=== PATIENT | female | born 1940 | race Native Hawaiian/Other Pacific Islander ===

== ENCOUNTER 2017-03-24 10:27 | Outpatient (CLI) | payer OTHER ==
[~2017-03-24 10:27] MED LIST: CARTIA XT240 MG/24 PO; KLOR-CON M2020 MEQ PO; LEVO0.0529 PO; LEXAPRO20 MG PO; METO50TA27 PO; MONT10TA PO; NAMENDA XR28 MG PO; OMEPRAZOLE20 M1 PO; PREDNISONE10 M1 PO; PRIMIDONE250 MG PO; REMERON SLTB45 MG PO; RISP1TAB PO; SIMV10TA PO; TEMA30CA18 PO; TRAZ100T PO; VIIBRYD40 MG PO; WELLBUTRIN150 MG PO; XANAX XR1 MG PO; XARELTO20 MG PO
[2017-03-24 10:58] LABS: PLATELET COUNT 357 K/uL (152-353)
[2017-03-24 11:28] LABS: POTASSIUM 3.2 mmol/L (3.6-5.2); SODIUM 137 mmol/L (136-145)
== END 2017-03-24 11:30 | disposition home or self-care (01) ==
LOC: LABW 10:27
PROVIDERS: Family Medicine
DX: J44.9 Chronic obstructive pulmonary disease, unspecified (principal); I48.91 Unspecified atrial fibrillation; I50.9 Heart failure, unspecified; J45.901 Unspecified asthma with (acute) exacerbation; J30.2 Other seasonal allergic rhinitis; R06.02 Shortness of breath; F51.01 Primary insomnia; E55.9 Vitamin D deficiency, unspecified
CPT/HCPCS: 36415; 80053; 80061; 81000; 82306; 82550; 82553; 83735; 84439; 84443; 84484; 84550; 85027; 93005

== ENCOUNTER 2017-04-18 14:34 | Emergency (ER) | payer OTHER ==
[~2017-04-18] VITALS: Ht 160 cm; Wt 81.6 kg
[2017-04-18 16:34] VITALS: BP 148/80; TEMP 99.1
== END 2017-04-18 16:35 | disposition home or self-care (01) ==
LOC: ED 14:34
DX: S82.844A Nondisplaced bimalleolar fracture of right lower leg, initial encounter for closed fracture (principal); W18.39XA Other fall on same level, initial encounter; Y92.098 Other place in other non-institutional residence as the place of occurrence of the external cause
CPT/HCPCS: 96372; 99283; J1170; J2405; L4350

== ENCOUNTER 2017-05-14 11:02 | Outpatient (CLI) | payer OTHER ==
[2017-05-14 12:24] LABS: POTASSIUM 3.9 mmol/L (3.6-5.2)
== END 2017-05-14 19:07 | disposition home or self-care (01) ==
LOC: LABW 11:02
PROVIDERS: Specialist
DX: R55 Syncope and collapse (principal)
CPT/HCPCS: 36415; 80053; 82533; 85651; 86039

== ENCOUNTER 2017-08-18 14:29 | Inpatient (IN) | payer OTHER ==
[~2017-08-18] VITALS: Ht 160 cm; Wt 85.0 kg
[2017-08-18] VITALS (19 sets, daily range): BP systolic 107–189; BP diastolic 64–112; TEMP 97.8–98.1
[2017-08-18 15:48] LABS: PLATELET COUNT 302 K/uL (152-353)
[2017-08-18 15:56] LABS: POTASSIUM 3.3 mmol/L (3.6-5.2)
[2017-08-18] MEDS ORDERED: ALPR0.5T24 PO (16:40)
[2017-08-18] MEDS ORDERED: SM OMEPRAZOLE20 MG PO (16:45)
[2017-08-18] MEDS ORDERED: PACERONE200 MG OR (16:49)
[2017-08-18] MEDS ORDERED: BUMETANIDE2 MG PO (16:52)
[2017-08-18] MEDS ORDERED: DILTIAZEM HCL180 M2 PO (16:53)
[2017-08-18] MEDS ORDERED: TRAZ100T OR (16:54)
[2017-08-19] VITALS (21 sets, daily range): BP systolic 92–135; BP diastolic 45–100; TEMP 98.9–101
[2017-08-19 08:19] LABS: PLATELET COUNT 268 K/uL (152-353)
[2017-08-19 08:36] LABS: POTASSIUM 3.3 mmol/L (3.6-5.2)
[2017-08-19] MEDS ORDERED: HYDR5TAB9 PO (09:52)
[2017-08-19] MEDS ORDERED: TRAZ100T PO (09:58)
[2017-08-19 16:29] LABS: PARTIAL THROMBOPLASTIN TIME 18.9 SECONDS (24.5-33.6)
[2017-08-19 18:56] LABS: POTASSIUM 4.1 mmol/L (3.6-5.2)
[2017-08-20] VITALS (24 sets, daily range): BP systolic 78–150; BP diastolic 47–93; TEMP 98.3–102.8
[2017-08-20 06:15] LABS: PLATELET COUNT 233 K/uL (152-353)
[2017-08-20 06:46] LABS: POTASSIUM 4.4 mmol/L (3.6-5.2)
[2017-08-21] VITALS (24 sets, daily range): BP systolic 89–128; BP diastolic 57–80; TEMP 97.4–99.9
[2017-08-21 07:56] LABS: PLATELET COUNT 216 K/uL (152-353)
[2017-08-21 08:34] LABS: POTASSIUM 4.6 mmol/L (3.6-5.2)
[2017-08-22] VITALS (24 sets, daily range): BP systolic 72–128; BP diastolic 48–95; TEMP 97.4–98.1
[2017-08-22 06:06] LABS: POTASSIUM 4.4 mmol/L (3.6-5.2)
[2017-08-22 06:32] LABS: PLATELET COUNT 266 K/uL (152-353)
[2017-08-23] VITALS (21 sets, daily range): BP systolic 85–148; BP diastolic 49–99; TEMP 97.6–98.8
[2017-08-23 06:02] LABS: POTASSIUM 4.5 mmol/L (3.6-5.2)
[2017-08-23 06:06] LABS: PLATELET COUNT 313 K/uL (152-353)
[2017-08-24] VITALS (18 sets, daily range): BP systolic 98–137; BP diastolic 67–114; TEMP 98
[2017-08-24 06:33] LABS: PLATELET COUNT 334 K/uL (152-353)
[2017-08-24 06:36] LABS: POTASSIUM 4.6 mmol/L (3.6-5.2)
[2017-08-25] VITALS (26 sets, daily range): BP systolic 83–142; BP diastolic 52–80; TEMP 97.7–99
[2017-08-25 06:06] LABS: PLATELET COUNT 338 K/uL (152-353)
[2017-08-25 06:18] LABS: POTASSIUM 4.8 mmol/L (3.6-5.2)
[2017-08-26] VITALS (23 sets, daily range): BP systolic 89–149; BP diastolic 43–85; TEMP 97.7–98.9
[2017-08-26 06:34] LABS: PLATELET COUNT 342 K/uL (152-353)
[2017-08-26 07:01] LABS: POTASSIUM 4.6 mmol/L (3.6-5.2)
[2017-08-27] VITALS (24 sets, daily range): BP systolic 118–147; BP diastolic 6–98; TEMP 97.9–98.3
[2017-08-27 06:14] LABS: PLATELET COUNT 352 K/uL (152-353)
[2017-08-27 06:26] LABS: POTASSIUM 4.7 mmol/L (3.6-5.2)
[2017-08-28] VITALS (15 sets, daily range): BP systolic 95–141; BP diastolic 57–75; TEMP 97.5–98.7
[2017-08-28 03:19] LABS: PLATELET COUNT 374 K/uL (152-353)
[2017-08-28 04:43] LABS: POTASSIUM 4.6 mmol/L (3.6-5.2)
[2017-08-29] VITALS: BP 118/59; TEMP 97.4
[2017-08-29 04:00] VITALS: BP 130/71; TEMP 98.5
[2017-08-29 06:29] LABS: PLATELET COUNT 370 K/uL (152-353)
[2017-08-29 06:55] LABS: POTASSIUM 4.5 mmol/L (3.6-5.2)
[2017-08-29 08:00] VITALS: BP 128/59; TEMP 97.8
[2017-08-29 12:00] VITALS: BP 124/63; TEMP 98.1
[2017-08-29 16:00] VITALS: BP 110/55; TEMP 98.2
[2017-08-29 20:00] VITALS: BP 122/59; TEMP 98.2
[2017-08-30] VITALS: BP 128/56; TEMP 98.5
[2017-08-30 04:00] VITALS: BP 144/67; TEMP 97.8
[2017-08-30 06:35] LABS: PLATELET COUNT 418 K/uL (152-353)
[2017-08-30 08:00] VITALS: BP 145/73; TEMP 97.7
[2017-08-30 09:27] LABS: POTASSIUM 4.6 mmol/L (3.6-5.2)
[2017-08-30 12:00] VITALS: BP 111/60; TEMP 98.2
[2017-08-30 16:00] VITALS: BP 98/54; TEMP 97.8
[2017-08-30 20:00] VITALS: BP 106/49; TEMP 98.3
[2017-08-31] VITALS: BP 139/50; TEMP 98.4
[2017-08-31 04:00] VITALS: BP 153/67; TEMP 98.3
[2017-08-31 07:23] LABS: POTASSIUM 5.1 mmol/L (3.6-5.2)
[2017-08-31 08:00] VITALS: BP 148/72; TEMP 98
[2017-08-31 08:43] LABS: PLATELET COUNT 354 K/uL (152-353)
[2017-08-31 12:00] VITALS: BP 160/75; TEMP 98.3
[2017-08-31 16:00] VITALS: BP 146/73; TEMP 98
[2017-08-31 20:00] VITALS: BP 104/51; TEMP 98.7
[2017-09-01] VITALS: BP 126/62; TEMP 98.3
[2017-09-01 04:00] VITALS: BP 146/71; TEMP 97.5
[2017-09-01 06:22] LABS: PLATELET COUNT 337 K/uL (152-353)
[2017-09-01 06:45] LABS: POTASSIUM 5.1 mmol/L (3.6-5.2)
[2017-09-01 08:00] VITALS: BP 171/73; TEMP 98
[2017-09-01 12:00] VITALS: BP 169/75; TEMP 98
[2017-09-01 16:00] VITALS: BP 151/64; TEMP 98.3
[2017-09-01 20:00] VITALS: BP 154/67; TEMP 97.6
[2017-09-02] VITALS: BP 161/69; TEMP 98.3
[2017-09-02 04:00] VITALS: BP 125/63; TEMP 98
[2017-09-02 05:16] LABS: PLATELET COUNT 311 K/uL (152-353)
[2017-09-02 05:24] LABS: POTASSIUM 4.3 mmol/L (3.6-5.2); SODIUM 131 mmol/L (136-145)
[2017-09-02 08:00] VITALS: BP 154/63; TEMP 97.7
[2017-09-02 12:00] VITALS: BP 119/83; TEMP 98.2
== END 2017-09-02 14:30 | disposition home or self-care (01) | DRG 308 ==
LOC: ED 14:29 → ICU 15:15 → ED 15:15 → ICU 15:15 → MED/SURG 08-28 14:45
PROVIDERS: Emergency Medicine; Specialist; ADMIT Family Medicine
DX: I48.91 Unspecified atrial fibrillation (principal); J18.8 Other pneumonia, unspecified organism; E87.1 Hypo-osmolality and hyponatremia; J44.0 Chronic obstructive pulmonary disease with (acute) lower respiratory infection; D72.828 Other elevated white blood cell count; R07.89 Other chest pain; R30.0 Dysuria; E87.6 Hypokalemia; E83.51 Hypocalcemia; E83.42 Hypomagnesemia; N18.3 Chronic kidney disease, stage 3 (moderate); I10 Essential (primary) hypertension; S82.841A Displaced bimalleolar fracture of right lower leg, initial encounter for closed fracture
CPT/HCPCS: 36415; 36600; 51702; 80048; 80053; 80162; 80200; 81000; 82150; 82272; 82550; 82553; 82570; 82805; 82948; 82962; 83605; 83690; 83735; 83880; 84300; 84443; 84484; 84540; 85027; 85379; 85610; 85651; 85730; 87015; 87040; 87045; 87070; 87205; 87324; 87449; 87804; 87899; 93005; 93306; 94640; 94664; 94668; 94760; 96361; 96372; 96374; 96375; 96376; 99285; J0150; J0153; J1160; J1815; J1940; J1956; J2060; J2270; J2405; J2920; J2930; J3260; J3490

== ENCOUNTER 2017-09-12 18:40 | Inpatient (IN) | payer OTHER ==
[~2017-09-12] VITALS: Ht 160 cm; Wt 81.6 kg
[2017-09-12 18:35] VITALS: BP 105/68; TEMP 97.7
[~2017-09-12 18:40] MED LIST changes: +ALPR0.5T24 PO; +BUMETANIDE2 MG PO; +DILTIAZEM HCL180 M2 PO; +HYDR5TAB9 PO; +PACERONE200 MG OR; +SM OMEPRAZOLE20 MG PO; +TRAZ100T OR
[2017-09-12 19:52] LABS: POTASSIUM 2.5 mmol/L (3.6-5.2); SODIUM 131 mmol/L (136-145)
[2017-09-12 20:31] LABS: PLATELET COUNT 143 K/uL (152-353)
[2017-09-13] VITALS (19 sets, daily range): BP systolic 74–113; BP diastolic 37–75; TEMP 98.6–100.5; Ht 160 cm; Wt 81.6 kg
[2017-09-13 06:22] LABS: PLATELET COUNT 129 K/uL (152-353)
[2017-09-13 06:28] LABS: POTASSIUM 3.5 mmol/L (3.6-5.2)
[2017-09-14] VITALS (17 sets, daily range): BP systolic 89–150; BP diastolic 45–80; TEMP 98.3–100.8
[2017-09-14 08:19] LABS: PLATELET COUNT 154 K/uL (152-353)
[2017-09-14 08:28] LABS: POTASSIUM 3.3 mmol/L (3.6-5.2); SODIUM 133 mmol/L (136-145)
[2017-09-15] VITALS (15 sets, daily range): BP systolic 90–121; BP diastolic 52–102; TEMP 99.3
[2017-09-15 08:03] LABS: PLATELET COUNT 186 K/uL (152-353)
[2017-09-15 08:21] LABS: POTASSIUM 3.5 mmol/L (3.6-5.2); SODIUM 133 mmol/L (136-145)
== END 2017-09-15 15:38 | disposition short-term general hospital (02) | DRG 190 ==
LOC: ED 18:40 → MED/SURG 23:22 → ICU 23:22 → MED/SURG 23:22 → ICU 23:22 → MED/SURG 09-13 00:05 → ICU 09-15 15:38
PROVIDERS: Specialist; ADMIT Family Medicine
DX: J44.0 Chronic obstructive pulmonary disease with (acute) lower respiratory infection (principal); J18.8 Other pneumonia, unspecified organism; I48.91 Unspecified atrial fibrillation; S82.841A Displaced bimalleolar fracture of right lower leg, initial encounter for closed fracture; K59.09 Other constipation; N18.3 Chronic kidney disease, stage 3 (moderate); I12.9 Hypertensive chronic kidney disease with stage 1 through stage 4 chronic kidney disease, or unspecified chronic kidney disease; E11.22 Type 2 diabetes mellitus with diabetic chronic kidney disease
CPT/HCPCS: 36415; 36600; 80053; 81000; 82550; 82553; 82805; 82962; 83735; 83880; 84100; 84484; 85027; 87804; 93005; 94640; 94664; 94760; 99283; J1650; J1956; J2405; J2550; J3475; Q9963

== ENCOUNTER 2017-09-15 15:48 | Outpatient (CLI) | payer OTHER | END 2017-09-15 16:18 | disposition short-term general hospital (02) | LOC: AMB 15:48 | DX: J44.0 Chronic obstructive pulmonary disease with (acute) lower respiratory infection (principal); J18.8 Other pneumonia, unspecified organism; I48.91 Unspecified atrial fibrillation; S82.841A Displaced bimalleolar fracture of right lower leg, initial encounter for closed fracture; K59.09 Other constipation; N18.3 Chronic kidney disease, stage 3 (moderate); I12.9 Hypertensive chronic kidney disease with stage 1 through stage 4 chronic kidney disease, or unspecified chronic kidney disease; E11.22 Type 2 diabetes mellitus with diabetic chronic kidney disease | CPT/HCPCS: A0425; A0427 ==

== ENCOUNTER 2017-09-27 12:44 | Outpatient (CLI) | payer OTHER | END 2017-09-27 13:45 | disposition home or self-care (01) | LOC: RAD 12:44 | DX: M54.5 Low back pain (principal) ==

== ENCOUNTER 2017-10-04 11:23 | Outpatient (CLI) | payer OTHER ==
[2017-10-04 12:35] LABS: POTASSIUM 2.5 mmol/L (3.6-5.2)
== END 2017-10-04 19:05 | disposition home or self-care (01) ==
LOC: LABW 11:23
PROVIDERS: Internal Medicine Cardiovascular Disease
DX: Z79.899 Other long term (current) drug therapy (principal); Z51.81 Encounter for therapeutic drug level monitoring
CPT/HCPCS: 36415; 80048; 80162

== ENCOUNTER 2017-10-14 13:49 | Outpatient (CLI) | payer OTHER ==
[2017-10-14 14:48] LABS: POTASSIUM 3.3 mmol/L (3.6-5.2); SODIUM 139 mmol/L (136-145)
== END 2017-10-14 15:00 | disposition home or self-care (01) ==
LOC: LABW 13:49
PROVIDERS: Internal Medicine Cardiovascular Disease
DX: Z79.899 Other long term (current) drug therapy (principal); Z51.81 Encounter for therapeutic drug level monitoring; I48.91 Unspecified atrial fibrillation
CPT/HCPCS: 36415; 80048

== ENCOUNTER 2017-10-26 12:52 | Outpatient (CLI) | payer OTHER ==
[2017-10-26 14:43] LABS: POTASSIUM 3.9 mmol/L (3.6-5.2); SODIUM 137 mmol/L (136-145)
[2017-10-26 14:52] LABS: PLATELET COUNT 306 K/uL (152-353)
== END 2017-10-26 21:42 | disposition home or self-care (01) ==
LOC: LABW 12:52
PROVIDERS: Family Medicine
DX: I48.91 Unspecified atrial fibrillation (principal); I50.9 Heart failure, unspecified; J44.9 Chronic obstructive pulmonary disease, unspecified; R53.83 Other fatigue; E11.9 Type 2 diabetes mellitus without complications; D64.89 Other specified anemias; E55.9 Vitamin D deficiency, unspecified
CPT/HCPCS: 36415; 80053; 80061; 80162; 81000; 82043; 82306; 82570; 82728; 83036; 83540; 83550; 83735; 84439; 84443; 84550; 85027

== ENCOUNTER 2017-11-11 14:29 | Inpatient (IN) | payer OTHER ==
[~2017-11-11] VITALS: Ht 160 cm; Wt 91.4 kg
[2017-11-11 14:35] VITALS: BP 120/61; TEMP 98.8
[2017-11-11 15:12] LABS: PLATELET COUNT 257 K/uL (152-353)
[2017-11-11 15:23] LABS: POTASSIUM 3.1 mmol/L (3.6-5.2); SODIUM 139 mmol/L (136-145)
[2017-11-11 19:00] VITALS: BP 130/59
[2017-11-11 20:00] VITALS: BP 145/68; TEMP 99.2
[2017-11-12] VITALS (7 sets, daily range): BP systolic 134–185; BP diastolic 68–94; TEMP 99.1–101; Ht 160 cm; Wt 91.4 kg
[2017-11-12 07:02] LABS: PLATELET COUNT 201 K/uL (152-353)
[2017-11-12 07:26] LABS: POTASSIUM 2.9 mmol/L (3.6-5.2); SODIUM 135 mmol/L (136-145)
[2017-11-13] VITALS: BP 156/81; TEMP 99.2
[2017-11-13 04:00] VITALS: BP 180/91; TEMP 99.6
[2017-11-13 05:21] LABS: PLATELET COUNT 210 K/uL (152-353)
[2017-11-13 05:48] LABS: POTASSIUM 2.6 mmol/L (3.6-5.2); SODIUM 135 mmol/L (136-145)
--- NOTE | 2017-11-13 06:37 | NUR ---
11/13/17 0637 PT C/O OF HAVING SHORTNESS OF BREATH RESP CALLED TO GIVE BREATHING TREATMENT.CC
[2017-11-13 08:00] VITALS: BP 163/84; TEMP 101.1
[2017-11-13 12:00] VITALS: BP 156/97; TEMP 99.3
[2017-11-13 16:00] VITALS: BP 140/78; TEMP 98.5
[2017-11-13 20:00] VITALS: BP 146/86; TEMP 101.3
[2017-11-14] VITALS: BP 134/84; TEMP 100
[2017-11-14 04:00] VITALS: BP 141/85; TEMP 100.8
[2017-11-14 06:05] LABS: SODIUM 133 mmol/L (136-145)
[2017-11-14 06:15] LABS: PLATELET COUNT 214 K/uL (152-353)
--- NOTE | 2017-11-14 06:34 | NUR ---
11/14/17 0630 AWAKE ALERT BRIEF CHANGED WET SMALL STOOL.PT COUGHING THIS AM SPITTING UP THICK MUCUS.CCC
--- NOTE | 2017-11-14 07:01 | NUR ---
11/14/17 0700 PT TO EXRAY VIA WHEELCHAIR.CC
[2017-11-14 08:00] VITALS: BP 110/86; TEMP 99
[2017-11-14 12:30] VITALS: BP 135/83; TEMP 98.7
[2017-11-14 16:00] VITALS: BP 125/80; TEMP 98.8
[2017-11-14 20:00] VITALS: BP 145/89; TEMP 98.9
[2017-11-15] VITALS: BP 137/79; TEMP 99
[2017-11-15 04:00] VITALS: BP 133/95; TEMP 98.8
--- NOTE | 2017-11-15 04:57 | NUR ---
11/15/17 0430 PT SITTING ON SIDE OF BED SHORT OF BREATH FROM GETING OUT OF BED NOT WEARING OXYGEN.PLACED OXYGEN BACK ON PT OXYGEN 94 PERCENT.BRIEF CHANGED DUE TO PT BEING INCONTINENT AND COUGHING.CC
[2017-11-15 05:27] LABS: PLATELET COUNT 251 K/uL (152-353)
[2017-11-15 05:54] LABS: POTASSIUM 3.9 mmol/L (3.6-5.2); SODIUM 133 mmol/L (136-145)
[2017-11-15 07:52] VITALS: BP 147/92; TEMP 97.7
--- NOTE | 2017-11-15 08:43 | NUR ---
NOTIFIED YARA BANSAL NP Pt. SOUND WETTING. NEW ORDER RECEIVED AND CARRIED TO DECREASE IV RATE TO 50CC/HR.
[2017-11-15 12:00] VITALS: BP 146/90; TEMP 97.9
[2017-11-15 15:56] VITALS: BP 119/79; TEMP 98
--- NOTE | 2017-11-15 17:20 | NUR ---
DA GARVIN RN WENT ROOM Pt. HAS INCREASED SOB ; RESP 32-34. O2 SAT WITH O2 @ 3LNC 82-84 AND BP 160/96. RESP. NOTIFIED. ABG DONE. DR. ROSAS NOTIFIED. DR. ROSAS AT BEDSIDE WITH NEW ORDERS RECEIVED. ALBUTEROL TX X1, MORPHINE 2MG IV X1, WITT. 1800 DR. ROSAS RETURNED LEAVE ON NONREBREATHER AND CX RAY. WITT CATHETER INSERTED WITH 900CC RETUNED YELLOW URINE.
[2017-11-15 20:10] VITALS: BP 138/88; TEMP 100.3
[2017-11-16] VITALS: BP 128/77; TEMP 98.4
[2017-11-16 04:00] VITALS: BP 143/80; TEMP 98.3
[2017-11-16 06:09] LABS: POTASSIUM 3.5 mmol/L (3.6-5.2); SODIUM 132 mmol/L (136-145)
[2017-11-16 06:16] LABS: PLATELET COUNT 237 K/uL (152-353)
--- NOTE | 2017-11-16 07:30 | NUR ---
RESP LABORED. O2 AT 4L PER NC. USING ABD MUSCLES TO BREATH.
[2017-11-16 08:00] VITALS: BP 154/92; TEMP 98.5
--- NOTE | 2017-11-16 08:20 | NUR ---
NOTIFIED TIEN KEENE Pt. SOB AND LABORED BREATHING. Pt. WILL BE TRANSFERRED .
--- NOTE | 2017-11-16 09:20 | NUR ---
RECEIVED ROOM ASSIGNMENT FROM [address] EMS NOTIFIED.
--- NOTE | 2017-11-16 10:39 | NUR ---
CALLED REPORT TO YOHANA PERRIN RN.
[2018-02-16] MEDS ORDERED: VIIBRYD40 MG PO (12:13)
[2018-02-16] MEDS ORDERED: FURO40TA93 PO (12:14)
[2018-02-16] MEDS ORDERED: PROM25TA52 PO (12:16)
[2018-02-16] MEDS ORDERED: DIGOXIN0.25 MG PO (12:17)
[2018-02-16] MEDS ORDERED: XARELTO20 MG PO (12:18)
== END 2017-11-16 11:55 | disposition short-term general hospital (02) | DRG 190 ==
LOC: ED 14:29 → MED/SURG 18:35
PROVIDERS: Family Medicine; Internal Medicine
DX: J44.0 Chronic obstructive pulmonary disease with (acute) lower respiratory infection (principal); J18.8 Other pneumonia, unspecified organism; F13.239 Sedative, hypnotic or anxiolytic dependence with withdrawal, unspecified; E87.1 Hypo-osmolality and hyponatremia; I10 Essential (primary) hypertension; J44.1 Chronic obstructive pulmonary disease with (acute) exacerbation; R59.0 Localized enlarged lymph nodes; I48.91 Unspecified atrial fibrillation; K21.9 Gastro-esophageal reflux disease without esophagitis; E87.6 Hypokalemia; E83.51 Hypocalcemia; E83.42 Hypomagnesemia; E88.09 Other disorders of plasma-protein metabolism, not elsewhere classified
CPT/HCPCS: 36415; 36600; 51702; 80053; 80202; 81000; 82805; 82948; 83735; 83880; 85027; 87015; 87045; 87070; 87077; 87205; 87324; 87328; 87329; 87449; 87804; 87899; 93005; 94640; 94664; 94668; 94760; 96360; 96361; 96365; 96366; 96367; 96372; 96374; 96375; 99284; J1650; J1940; J2060; J2270; J2550; J2930; J3490; P9047; Q9963

== ENCOUNTER 2017-11-16 12:01 | Outpatient (CLI) | payer OTHER ==
[2018-02-16] MEDS ORDERED: VIIBRYD40 MG PO (12:13)
[2018-02-16] MEDS ORDERED: FURO40TA93 PO (12:14)
[2018-02-16] MEDS ORDERED: PROM25TA52 PO (12:16)
[2018-02-16] MEDS ORDERED: DIGOXIN0.25 MG PO (12:17)
[2018-02-16] MEDS ORDERED: XARELTO20 MG PO (12:18)
== END 2017-11-16 13:14 | disposition short-term general hospital (02) ==
LOC: AMB 12:01
DX: J44.0 Chronic obstructive pulmonary disease with (acute) lower respiratory infection (principal); J18.8 Other pneumonia, unspecified organism; F13.239 Sedative, hypnotic or anxiolytic dependence with withdrawal, unspecified; E87.1 Hypo-osmolality and hyponatremia; I10 Essential (primary) hypertension; J44.1 Chronic obstructive pulmonary disease with (acute) exacerbation; R59.0 Localized enlarged lymph nodes; I48.91 Unspecified atrial fibrillation; K21.9 Gastro-esophageal reflux disease without esophagitis; E87.6 Hypokalemia; E83.51 Hypocalcemia; E83.42 Hypomagnesemia; E88.09 Other disorders of plasma-protein metabolism, not elsewhere classified
CPT/HCPCS: A0425; A0427

== ENCOUNTER 2017-12-06 19:12 | Emergency (ER) | payer OTHER ==
[~2017-12-06] VITALS: Ht 160 cm; Wt 81.6 kg
[2017-12-06 21:51] LABS: PLATELET COUNT 242 K/uL (152-353)
[2017-12-06 21:56] LABS: POTASSIUM 3.9 mmol/L (3.6-5.2)
[2017-12-06 23:05] VITALS: BP 142/58; TEMP 98.2
[2018-02-16] MEDS ORDERED: VIIBRYD40 MG PO (12:13)
[2018-02-16] MEDS ORDERED: FURO40TA93 PO (12:14)
[2018-02-16] MEDS ORDERED: PROM25TA52 PO (12:16)
[2018-02-16] MEDS ORDERED: DIGOXIN0.25 MG PO (12:17)
[2018-02-16] MEDS ORDERED: XARELTO20 MG PO (12:18)
== END 2017-12-06 23:15 | disposition home or self-care (01) ==
LOC: ED 19:12
PROVIDERS: Specialist
DX: R51 Headache (principal); M54.89 Other dorsalgia; J06.9 Acute upper respiratory infection, unspecified; I48.91 Unspecified atrial fibrillation
CPT/HCPCS: 36415; 80048; 81000; 85027; 87804; 93005; 96374; 99284; J1720

== ENCOUNTER 2018-01-05 13:21 | Outpatient (CLI) | payer OTHER ==
[2018-01-05 14:33] LABS: PLATELET COUNT 340 K/uL (152-353)
[2018-02-16] MEDS ORDERED: VIIBRYD40 MG PO (12:13)
[2018-02-16] MEDS ORDERED: FURO40TA93 PO (12:14)
[2018-02-16] MEDS ORDERED: PROM25TA52 PO (12:16)
[2018-02-16] MEDS ORDERED: DIGOXIN0.25 MG PO (12:17)
[2018-02-16] MEDS ORDERED: XARELTO20 MG PO (12:18)
== END 2018-01-05 22:12 | disposition home or self-care (01) ==
LOC: LABW 13:21
PROVIDERS: Family Medicine
DX: I50.9 Heart failure, unspecified (principal); R60.0 Localized edema; I48.91 Unspecified atrial fibrillation; E55.9 Vitamin D deficiency, unspecified
CPT/HCPCS: 36415; 80053; 80162; 82306; 83880; 84439; 84443; 84550; 85027

== ENCOUNTER 2018-01-08 16:28 | Emergency (ER) | payer OTHER ==
[~2018-01-08] VITALS: Ht 160 cm; Wt 81.6 kg
[2018-01-08 16:37] VITALS: BP 105/53; TEMP 98.3
[2018-01-08 17:50] LABS: PLATELET COUNT 315 K/uL (152-353)
[2018-01-08 17:59] LABS: POTASSIUM 3.8 mmol/L (3.6-5.2); SODIUM 133 mmol/L (136-145)
[2018-02-16] MEDS ORDERED: VIIBRYD40 MG PO (12:13)
[2018-02-16] MEDS ORDERED: FURO40TA93 PO (12:14)
[2018-02-16] MEDS ORDERED: PROM25TA52 PO (12:16)
[2018-02-16] MEDS ORDERED: DIGOXIN0.25 MG PO (12:17)
[2018-02-16] MEDS ORDERED: XARELTO20 MG PO (12:18)
== END 2018-01-08 18:28 | disposition home or self-care (01) ==
LOC: ED 16:28
DX: I48.91 Unspecified atrial fibrillation (principal)
CPT/HCPCS: 80053; 82550; 84484; 85027; 93005; 99283

== ENCOUNTER 2018-01-26 15:31 | Emergency (ER) | payer OTHER ==
[~2018-01-26] VITALS: Ht 160 cm; Wt 79.4 kg
[2018-01-26 15:30] VITALS: TEMP 100
[2018-01-26 17:06] LABS: POTASSIUM 3.7 mmol/L (3.6-5.2); SODIUM 133 mmol/L (136-145)
[2018-01-26 17:09] LABS: PLATELET COUNT 297 K/uL (152-353)
[2018-01-26 19:05] VITALS: BP 128/81
[2018-02-16] MEDS ORDERED: VIIBRYD40 MG PO (12:13)
[2018-02-16] MEDS ORDERED: FURO40TA93 PO (12:14)
[2018-02-16] MEDS ORDERED: PROM25TA52 PO (12:16)
[2018-02-16] MEDS ORDERED: DIGOXIN0.25 MG PO (12:17)
[2018-02-16] MEDS ORDERED: XARELTO20 MG PO (12:18)
== END 2018-01-26 19:08 | disposition home or self-care (01) ==
LOC: ED 15:31
PROVIDERS: Emergency Medicine
DX: I48.91 Unspecified atrial fibrillation (principal); D72.828 Other elevated white blood cell count
CPT/HCPCS: 36415; 80053; 81000; 82550; 83880; 84484; 85027; 87081; 87804; 87880; 93005; 99283

== ENCOUNTER 2018-10-20 12:18 | Outpatient (CLI) | payer OTHER ==
[~2018-10-20 12:18] MED LIST changes: +DIGOXIN0.25 MG PO; +FURO40TA93 PO; +PROM25TA52 PO
[2018-10-20 12:42] LABS: PLATELET COUNT 308 K/uL (152-353)
[2018-10-20 13:21] LABS: POTASSIUM 3.8 mmol/L (3.6-5.2)
== END 2018-10-20 23:43 | disposition home or self-care (01) ==
LOC: LABW 12:18
PROVIDERS: Family Medicine
DX: I48.91 Unspecified atrial fibrillation (principal); E11.9 Type 2 diabetes mellitus without complications; K21.9 Gastro-esophageal reflux disease without esophagitis; R60.0 Localized edema; I51.9 Heart disease, unspecified; I10 Essential (primary) hypertension; E55.9 Vitamin D deficiency, unspecified; R42 Dizziness and giddiness; E53.8 Deficiency of other specified B group vitamins
CPT/HCPCS: 36415; 80053; 80061; 80162; 81000; 82306; 82607; 83036; 83735; 84439; 84443; 84550; 85027

== ENCOUNTER 2018-10-22 18:31 | Inpatient (IN) | payer OTHER ==
[2018-10-22] VITALS (12 sets, daily range): BP systolic 124–175; BP diastolic 4–112; TEMP 98.1–102.3
[~2018-10-22] VITALS: Ht 160 cm; Wt 77.8 kg
[2018-10-22 19:41] LABS: PLATELET COUNT 246 K/uL (152-353)
[2018-10-22 21:30] LABS: POTASSIUM 3.2 mmol/L (3.6-5.2); SODIUM 136 mmol/L (136-145)
[2018-10-23] VITALS (26 sets, daily range): BP systolic 92–160; BP diastolic 66–103; TEMP 98.9–101.7; Ht 160 cm; Wt 77.8 kg
[2018-10-23 00:34] LABS: PLATELET COUNT 228 K/uL (152-353)
[2018-10-23 00:50] LABS: POTASSIUM 3.6 mmol/L (3.6-5.2); SODIUM 135 mmol/L (136-145)
[2018-10-23 06:25] LABS: PLATELET COUNT 222 K/uL (152-353)
[2018-10-23 06:34] LABS: POTASSIUM 3.7 mmol/L (3.6-5.2); SODIUM 135 mmol/L (136-145)
[2018-10-24] VITALS (24 sets, daily range): BP systolic 98–140; BP diastolic 54–95; TEMP 98.4–99.8
[2018-10-24 06:42] LABS: PLATELET COUNT 213 K/uL (152-353)
[2018-10-24 06:59] LABS: POTASSIUM 3.5 mmol/L (3.6-5.2)
[2018-10-25] VITALS (16 sets, daily range): BP systolic 108–155; BP diastolic 72–107; TEMP 98.4–99.5
[2018-10-25 08:32] LABS: PLATELET COUNT 212 K/uL (152-353)
[2018-10-25 08:51] LABS: POTASSIUM 3.9 mmol/L (3.6-5.2)
[2018-10-26] VITALS (24 sets, daily range): BP systolic 112–169; BP diastolic 76–109; TEMP 98.2–99.5
[2018-10-26 08:16] LABS: POTASSIUM 3.4 mmol/L (3.6-5.2)
[2018-10-26 08:29] LABS: PLATELET COUNT 177 K/uL (152-353)
[2018-10-27] VITALS (15 sets, daily range): BP systolic 126–164; BP diastolic 63–100; TEMP 98.5–99.3
[2018-10-27 06:53] LABS: PLATELET COUNT 249 K/uL (152-353)
[2018-10-27 08:06] LABS: POTASSIUM 4.1 mmol/L (3.6-5.2)
[2018-10-28] VITALS: BP 123/65; TEMP 98.5
[2018-10-28 04:00] VITALS: BP 136/70; TEMP 98.8
[2018-10-28 05:23] LABS: PLATELET COUNT 270 K/uL (152-353)
[2018-10-28 05:42] LABS: POTASSIUM 3.9 mmol/L (3.6-5.2)
[2018-10-28 08:00] VITALS: BP 150/90; TEMP 99.5
[2018-10-28 12:03] VITALS: BP 130/69; TEMP 99
[2018-10-28 16:11] VITALS: BP 140/72; TEMP 99.8
[2018-10-28 20:00] VITALS: BP 177/96; TEMP 98.7
[2018-10-29] VITALS: BP 176/99; TEMP 99.6
[2018-10-29 04:01] VITALS: BP 135/80; TEMP 99.4
[2018-10-29 06:30] LABS: PLATELET COUNT 294 K/uL (152-353)
[2018-10-29 06:56] LABS: POTASSIUM 3.7 mmol/L (3.6-5.2)
[2018-10-29 08:13] VITALS: BP 152/83; TEMP 98
[2018-10-29 12:10] VITALS: BP 142/69; TEMP 98.6
[2018-10-29 16:22] VITALS: BP 147/80; TEMP 99.1
[2018-10-29 20:00] VITALS: BP 142/78; TEMP 99.7
[2018-10-30] VITALS: BP 175/98; TEMP 99.5
[2018-10-30 03:49] VITALS: BP 125/67; TEMP 99.1
[2018-10-30 08:07] VITALS: BP 149/84; TEMP 99
[2018-10-30 12:05] VITALS: BP 118/78; TEMP 98.6
[2018-10-30 16:00] VITALS: BP 128/68; TEMP 98.6
[2018-10-30 16:30] LABS: POTASSIUM 3.6 mmol/L (3.6-5.2)
[2018-10-30 20:00] VITALS: BP 125/82; TEMP 98
[2018-10-31] VITALS: BP 130/80; TEMP 98.4
[2018-10-31 03:55] VITALS: BP 163/89; TEMP 98.2
[2018-10-31 05:49] LABS: POTASSIUM 3.8 mmol/L (3.6-5.2)
[2018-10-31 08:19] VITALS: BP 131/77; TEMP 99.1
[2018-10-31 12:05] VITALS: BP 150/70; TEMP 98
[2018-10-31 20:03] VITALS: BP 137/71; TEMP 100.1
[2018-11-01 00:08] VITALS: BP 134/74; TEMP 99.1
[2018-11-01 04:19] VITALS: BP 110/70; TEMP 97.6
[2018-11-01 08:03] VITALS: BP 128/62; TEMP 97.9
[2018-11-01 12:00] VITALS: BP 132/71; TEMP 98
== END 2018-11-01 14:45 | disposition short-term general hospital (02) | DRG 191 ==
LOC: ED 18:31 → MED/SURG 22:09 → ICU 22:09 → MED/SURG 22:15 → ICU 10-27 16:48 → MED/SURG 10-27 16:48
PROVIDERS: Family Medicine; Internal Medicine; Internal Medicine Cardiovascular Disease; ADMIT Family Medicine
PROC: 05HM33Z Insertion of Infusion Device into Right Internal Jugular Vein, Percutaneous Approach (ICD-10-PCS; principal; 2018-10-25)
PROC: B543ZZA Ultrasonography of Right Jugular Veins, Guidance (ICD-10-PCS; 2018-10-25)
DX: J44.1 Chronic obstructive pulmonary disease with (acute) exacerbation (principal); E46 Unspecified protein-calorie malnutrition; R74.0 Nonspecific elevation of levels of transaminase and lactic acid dehydrogenase [LDH]; A08.4 Viral intestinal infection, unspecified; E83.42 Hypomagnesemia; J01.90 Acute sinusitis, unspecified; D72.828 Other elevated white blood cell count; I48.2 Chronic atrial fibrillation; E79.0 Hyperuricemia without signs of inflammatory arthritis and tophaceous disease; G89.4 Chronic pain syndrome; E11.9 Type 2 diabetes mellitus without complications; I10 Essential (primary) hypertension; F41.8 Other specified anxiety disorders; I87.8 Other specified disorders of veins; R53.1 Weakness; R09.02 Hypoxemia; R06.09 Other forms of dyspnea
CPT/HCPCS: 36415; 80048; 80053; 80162; 81000; 82150; 82272; 82550; 82553; 82728; 83036; 83540; 83550; 83605; 83630; 83690; 83735; 83880; 84100; 84439; 84443; 84484; 85027; 85379; 85730; 87015; 87040; 87045; 87324; 87328; 87329; 87449; 87502; 87899; 93005; 94640; 94664; 94760; 96361; 96365; 99285; C1768; J0132; J0456; J0696; J1160; J1650; J1940; J1956; J2405; J3475; J3490; Q9963

== ENCOUNTER 2018-11-01 14:47 | Outpatient (CLI) | payer OTHER | END 2018-11-01 15:54 | disposition short-term general hospital (02) | LOC: AMB 14:47 | DX: J44.1 Chronic obstructive pulmonary disease with (acute) exacerbation (principal); E46 Unspecified protein-calorie malnutrition; R74.0 Nonspecific elevation of levels of transaminase and lactic acid dehydrogenase [LDH]; A08.4 Viral intestinal infection, unspecified; E83.42 Hypomagnesemia; J01.90 Acute sinusitis, unspecified; D72.828 Other elevated white blood cell count; I48.2 Chronic atrial fibrillation; E79.0 Hyperuricemia without signs of inflammatory arthritis and tophaceous disease; G89.4 Chronic pain syndrome; E11.9 Type 2 diabetes mellitus without complications; I10 Essential (primary) hypertension; F41.8 Other specified anxiety disorders; I87.8 Other specified disorders of veins; R53.1 Weakness; R09.02 Hypoxemia; R06.09 Other forms of dyspnea | CPT/HCPCS: A0425; A0427 ==

== ENCOUNTER 2018-12-07 13:55 | Outpatient (CLI) | payer OTHER ==
[2018-12-07 14:14] LABS: POTASSIUM 3.3 mmol/L (3.6-5.2)
== END 2018-12-07 22:08 | disposition home or self-care (01) ==
LOC: LABW 13:55
PROVIDERS: Internal Medicine Cardiovascular Disease
DX: Z09 Encounter for follow-up examination after completed treatment for conditions other than malignant neoplasm (principal)
CPT/HCPCS: 36415; 80048

== ENCOUNTER 2018-12-12 16:35 | Inpatient (IN) | payer OTHER ==
[~2018-12-12] VITALS: Ht 160 cm; Wt 77.8 kg
[2018-12-12 16:35] VITALS: BP 130/64; TEMP 98.3
[2018-12-12 16:42] VITALS: BP 126/52; TEMP 98.4
[2018-12-12 16:46] VITALS: BP 126/52; TEMP 98.1
[2018-12-12 17:38] LABS: POTASSIUM 2.6 mmol/L (3.6-5.2)
[2018-12-12 17:44] LABS: PLATELET COUNT 284 K/uL (152-353)
--- NOTE | 2018-12-12 21:28 | NUR ---
REPORT RECIEVED FROM Aldo BERMUDEZ RN
--- NOTE | 2018-12-12 21:30 | NUR ---
PT C/O NAUSEA AND PAIN
--- NOTE | 2018-12-12 21:40 | NUR ---
16F WITT INSERTED - IMMEDIATE RETURN OF CLEAR YELLOW URINE NOTED
--- NOTE | 2018-12-12 21:40 | NUR ---
PT ARRIVED TO MED/SURG FLOOR VIA STRETCHER PER ED STAFF. PT UNABLE TO TRANSFER FROM STRETCHER TO BED AND IS EXTENSIVE ASSIST. PT STATES SHE AMBULATES AT HOME WITH [facility] BUT HASN'T BEEN ABLE TO AMBULATE IN THE LAST FEW DAYS. ASSESSMENT WAS DONE AT THIS TIME AND IS CHARTED. PT WAS ORIENTED TO ROOM AND CALL LIGHT. PT WAS INSTRUCTED TO CALL BEFORE ATTEMPTING TO GET OUT OF BED. PT VERBALIZED UNDERSTANDING. BED IS LOCKED AND PLACED IN LOWEST POSITON WITH SIDE RAILS UP X2.
[2018-12-12 23:28] VITALS: BP 150/57; TEMP 98.4; Ht 160 cm; Wt 77.8 kg
[2018-12-13] VITALS: BP 150/57; TEMP 98.4
[2018-12-13 04:00] VITALS: BP 140/68; TEMP 98.4
[2018-12-13 05:35] LABS: POTASSIUM 2.9 mmol/L (3.6-5.2)
[2018-12-13 07:54] VITALS: BP 114/57; TEMP 99.2
[2018-12-13 11:53] VITALS: BP 138/57; TEMP 98.7
[2018-12-13 15:58] VITALS: BP 121/66; TEMP 98.3
[2018-12-13 20:00] VITALS: BP 137/68; TEMP 98.8
--- NOTE | 2018-12-13 23:30 | NUR ---
23:00 PTS HEART RATE ELEVATED AFTER BSC DIDNT RETURN TO BASELINE OF 100'S LIKE PREVIOUS TIME HEART RATE REMAINED 140'S TO 160'S IRREGULAR EKG ORDERED RESULTS OF RATE 134 A FIB NO RVR SEEN ON EKG. DR DENNY NOTIFIED OF EKG RESULTS AND PTS HEART RATE AFTER BSC. ORDERS FOR COLACE 200 MG PO NOW FOR CONSTIPATION AND 100 MG PO BID
[2018-12-14 00:23] VITALS: BP 183/90; TEMP 98.6
[2018-12-14 03:59] VITALS: BP 153/90; TEMP 98.8
[2018-12-14 05:41] LABS: PLATELET COUNT 324 K/uL (152-353)
[2018-12-14 05:59] LABS: POTASSIUM 4.5 mmol/L (3.6-5.2)
[2018-12-14 08:19] VITALS: BP 157/79; TEMP 98
[2018-12-14 12:13] VITALS: BP 151/61; TEMP 98.4
[2018-12-14 16:05] VITALS: BP 147/66; TEMP 98.3
[2018-12-14 20:00] VITALS: BP 142/73; TEMP 98
[2018-12-15] VITALS: BP 107/83; TEMP 98.2
[2018-12-15 04:00] VITALS: BP 116/77; TEMP 98.1
[2018-12-15 08:27] VITALS: BP 110/66; TEMP 98.4
[2018-12-15 12:06] VITALS: BP 126/77; TEMP 98.3
[2018-12-15] MEDS ORDERED: FURO40TA93 PO (13:40)
[2018-12-15] MEDS ORDERED: CARTIA XT240 MG PO (13:40)
[2018-12-15] MEDS ORDERED: APIX1TAB PO (13:41)
[2018-12-15] MEDS ORDERED: METFORMIN HCL500 M1 PO (13:41)
--- NOTE | 2018-12-15 13:42 | NUR ---
1315 SPOKE WITH BRAIN AT Mtime IN REGARDS TO PT'S HOME MEDS. PT'S HOME MEDS DID NOT MATCH THE LIST IN THE COMPUTER. ACCORDING TO PHARMCIST AT Mtime DR MILLER RECENTLY CHANGED SOME MEDS ON 12-07-18 LASIX INCREASED TO 40MG ONE TAB TWICE A DAY, DITILIZEM CD 240MG ONE TAB BID; METFORMIN 500MG TAKE ONE TAB BID; REFILLS GIVEN FOR ELIQUIS 2.5MG TAKE ONE TAB BID. LEVAQUIN 500MG TAKE ONE TAB DAILY FOR 10 DAYS; KLOR CON 10MEQ TAKE ONE TAB TWICE A DAY. DR DENNY AWARE OF ALL DISCREPICENIES. WILL TALK WITH FAMILY THAT TAKES PT HOME
--- NOTE | 2018-12-15 13:46 | NUR ---
1300 BLADDER TRAINING STARTED AT THIS TIME.
--- NOTE | 2018-12-15 14:53 | NUR ---
1430 BLADDER TRAINING COMPLETED AT THIS TIME. MIRYAM DC'D PER PROTOCOL. 1435 PT LEFT VIA WC WITH FAMILY. NO ACUTE DISTRESS NTOED.
== END 2018-12-15 14:35 | disposition home or self-care (01) | DRG 690 ==
LOC: ED 16:35 → MED/SURG 20:24
PROVIDERS: Family Medicine; ADMIT Internal Medicine
DX: N39.0 Urinary tract infection, site not specified (principal); E86.0 Dehydration; E87.6 Hypokalemia; E83.42 Hypomagnesemia; E87.8 Other disorders of electrolyte and fluid balance, not elsewhere classified; M54.5 Low back pain; I48.2 Chronic atrial fibrillation; Z79.01 Long term (current) use of anticoagulants; I10 Essential (primary) hypertension; E11.9 Type 2 diabetes mellitus without complications; K59.09 Other constipation; J43.8 Other emphysema; E03.8 Other specified hypothyroidism; B96.20 Unspecified Escherichia coli [E. coli] as the cause of diseases classified elsewhere
CPT/HCPCS: 36415; 80048; 80053; 80162; 81000; 83735; 85027; 87077; 87086; 87088; 87186; 93005; 94760; 96366; 96374; 96375; 99285; J1815; J1956; J2175; J2405; J3475

== ENCOUNTER 2018-12-23 13:41 | Outpatient (CLI) | payer OTHER ==
[~2018-12-23 13:41] MED LIST changes: +APIX1TAB PO; +CARTIA XT240 MG PO; +METFORMIN HCL500 M1 PO
[2018-12-23 14:35] LABS: POTASSIUM 3.5 mmol/L (3.6-5.2)
== END 2018-12-23 22:40 | disposition home or self-care (01) ==
LOC: LABW 13:41
PROVIDERS: Internal Medicine Cardiovascular Disease
DX: Z79.899 Other long term (current) drug therapy (principal)
CPT/HCPCS: 36415; 80048

== ENCOUNTER 2018-12-24 02:19 | Emergency (ER) | payer OTHER ==
[~2018-12-24] VITALS: Ht 160 cm; Wt 77.6 kg
[2018-12-24 02:25] VITALS: TEMP 97.9
[2018-12-24 03:08] LABS: PLATELET COUNT 415 K/uL (152-353)
[2018-12-24 03:09] LABS: POTASSIUM 3.2 mmol/L (3.6-5.2); SODIUM 135 mmol/L (136-145)
[2018-12-24 04:15] VITALS: BP 128/69
== END 2018-12-24 04:29 | disposition home or self-care (01) ==
LOC: ED 02:19
PROVIDERS: Family Medicine
DX: R07.89 Other chest pain (principal); E87.6 Hypokalemia; I48.91 Unspecified atrial fibrillation
CPT/HCPCS: 36415; 80053; 81000; 82550; 82553; 83880; 84443; 84484; 85027; 85379; 93005; 96372; 96374; 99284; J1885; J2405

== ENCOUNTER 2019-02-14 12:07 | Outpatient (CLI) | payer OTHER ==
[2019-02-14 12:36] LABS: PLATELET COUNT 367 K/uL (152-353)
[2019-02-14 13:07] LABS: POTASSIUM 3.4 mmol/L (3.6-5.2)
== END 2019-02-14 21:08 | disposition home or self-care (01) ==
LOC: LABW 12:07
PROVIDERS: Internal Medicine
DX: E03.9 Hypothyroidism, unspecified (principal); E55.9 Vitamin D deficiency, unspecified; I48.0 Paroxysmal atrial fibrillation; J44.9 Chronic obstructive pulmonary disease, unspecified; I10 Essential (primary) hypertension; F41.8 Other specified anxiety disorders; M54.89 Other dorsalgia; K21.9 Gastro-esophageal reflux disease without esophagitis
CPT/HCPCS: 36415; 80053; 80061; 82306; 83735; 84443; 85027

== ENCOUNTER 2019-05-31 14:56 | Outpatient (CLI) | payer OTHER ==
[2019-05-31 15:25] LABS: POTASSIUM 3.9 mmol/L (3.6-5.2)
== END 2019-05-31 23:42 | disposition home or self-care (01) ==
LOC: LABW 14:56
PROVIDERS: Internal Medicine Cardiovascular Disease
DX: Z79.899 Other long term (current) drug therapy (principal); R06.02 Shortness of breath; I48.91 Unspecified atrial fibrillation
CPT/HCPCS: 36415; 80048; 80162; 83880

== ENCOUNTER 2019-11-10 21:34 | Emergency (ER) | payer OTHER ==
[~2019-11-10] VITALS: Ht 160 cm; Wt 72.6 kg
[2019-11-10 23:17] LABS: PLATELET COUNT 391 K/uL (152-353)
[2019-11-10 23:19] LABS: POTASSIUM 3.9 mmol/L (3.6-5.2); SODIUM 136 mmol/L (136-145)
[2019-11-11 03:40] VITALS: BP 128/84; TEMP 98.1
== END 2019-11-11 03:40 | disposition home or self-care (01) ==
LOC: ED 21:34
PROVIDERS: Family Medicine
DX: I48.91 Unspecified atrial fibrillation (principal); R51 Headache; R11.2 Nausea with vomiting, unspecified; R53.1 Weakness
CPT/HCPCS: 36415; 80053; 81000; 82550; 84484; 85027; 87077; 87086; 87088; 87186; 87502; 93005; 96374; 96375; 96376; 99284; J2405; J3490

== ENCOUNTER 2019-12-13 18:00 | Outpatient (CLI) | payer OTHER | END 2019-12-13 20:00 | disposition home or self-care (01) | LOC: LAB 18:00 → EDSTATUS 12-14 08:19 | DX: R73.9 Hyperglycemia, unspecified (principal) | CPT/HCPCS: 83036 ==